=== PATIENT | male | born 1975 | race Hispanic/Latino ===

== ENCOUNTER 2021-06-19 01:50 | Day surgery (SDC) | payer OTHER, SELFPAY ==
[2021-06-15 13:19] VITALS: BMI 26.4
--- NOTE | 2021-06-19 10:47 | WPDANESEPPF ---
Anes - Initial Pre Proc Eval Procedure: Operation Date: 06/19/21 14:00 Proposed Procedures p Colonoscopy - Moses Thurston MD Date/Time: 06/19/21 10:47 Surgeon: Moses Thurston MD Pre Op Diagnosis: melena Patient Data Age: 45 Gender: M Height: 1.83 m Weight: 88.5 kg Allergies Allergy/AdvReac Type Severity Reaction Status Date / Time No Known Allergies Allergy Unverified 06/19/21 12:56 Home Medications Medication Instructions Recorded Confirmed Type No Home Medications 05/06/21 06/15/21 History Patient hx anesthesia problems: none Family hx anesthesia problems: none Results Review: All pre-operative results and documents have been reviewed as part of the pre-operative evaluation. [facility], LAT[facility] Social History Social History (Updated 05/06/21 @ 14:23 by Katarina Gonzalez) Smoking status: Never smoker Second hand tobacco smoke exposure: No Alcohol intake: current Drinks per week: 10 Substance use: never Substance use type: does not use Living arrangements: with family Gender identity (if verbalized by the patient): Male Sexual Orientation (if Verbalized by the Patient): Straight or Heterosexual Spiritual care concerns: No Anes - Eval Final PreProcedure Day of Procedure 06/19/21 10:47 Patient weight: overweight Heart: regular rate and rhythm Lungs: clear to auscultation and normal air movement Airway: Mallampati scale class II Neurological: alert and oriented Last oral intake: >/= 8 hours ASA classification: I Emergent: no Anesthetic plan: proceed Anesthesia type and monitoring: general GIVS Results Review: All pre-operative results and documents have been reviewed as part of the pre-operative evaluation. Informed Consent: The patient's anesthetic plan and its attendant risks and benefits were discussed with the patient/family/POA. Questions were solicited and answers provided to the satisfaction of the patient/family/POA.
[2021-06-19 12:59] VITALS: BP 130/93; PULSE 65; RESP 20; TEMP 36.2; O2SAT 100
[2021-06-19] MEDS: LACTATED RINGERS 1,000 ML 150 ML IV CONT (13:16)
--- NOTE | 2021-06-19 13:39 | WPDGICN ---
Assessment and Plan Assessment and plan (1) Rectal bleeding: Code(s): K62.5 - Hemorrhage of anus and rectum Status: Acute Assessment and Plan: Patient has had 1 episode of bright red blood per rectum. For this reason colonoscopy will be performed to assess more thoroughly. Further recommendations may be given after endoscopy. (2) Encounter for screening colonoscopy: Code(s): Z12.11 - Encounter for screening for malignant neoplasm of colon Status: Acute Assessment and Plan: Patient has never had screening colonoscopy. Given his age of 45 neoplasia screening advised. Neoplasia screening colonoscopy will be performed at this time. GI Consult Note Consult date/time: 06/19/21 13:39 HPI: Max Ross III is a 45 year old male Presents for colonoscopy. Patient has never had screening colonoscopy. He reports 1 episode of bright red blood per rectum. For this reason referred for endoscopy. He denies abdominal pain. He reports his bowel habits are normal. There is no family history of colon or rectal disease. Neoplasia screening advised. Review of Systems Review of Systems: All systems reviewed & are unremarkable except as noted in HPI and below [facility] Social History Social History (Updated 05/06/21 @ 14:23 by Katarina Gonzalez) Smoking status: Never smoker Second hand tobacco smoke exposure: No Alcohol intake: current Drinks per week: 10 Substance use: never Substance use type: does not use Living arrangements: with family Gender identity (if verbalized by the patient): Male Sexual Orientation (if Verbalized by the Patient): Straight or Heterosexual Spiritual care concerns: No Meds Home Medications and Allergies Home Medications Medication Instructions Recorded Confirmed Type No Home Medications 05/06/21 06/15/21 History Allergies Allergy/AdvReac Type Severity Reaction Status Date / Time No Known Allergies Allergy Unverified 06/19/21 12:56 Vital Signs Vital Signs - 24 hr 06/19/21 12:59 Temperature 97.1 F L Pulse Rate 65 Respiratory Rate 20 Blood Pressure 130/93 H Pulse Oximetry 100 Exam Narrative: Physical exam reveals patient to be alert. Vital signs stable. HEENT exam is unremarkable. Patient is anicteric. Lungs are clear to auscultation and percussion. Heart is without murmur or extra sounds. Abdominal exam bowel sounds present soft nontender with no hepatosplenomegaly. Digital external rectal exam is normal.
[2021-06-19 14:04] VITALS: BP 102/70; PULSE 80; RESP 18; O2SAT 96
[2021-06-19 14:14] VITALS: BP 109/67; PULSE 72; RESP 18; O2SAT 96
[2021-06-19 14:24] VITALS: BP 121/81; PULSE 70; RESP 18; O2SAT 98
== END 2021-06-19 14:37 | disposition home or self-care (01) ==
PROVIDERS: PCP Family Medicine; Visit Provider Internal Medicine Gastroenterology
PROC: 0DJD8ZZ Inspection of Lower Intestinal Tract, Via Natural or Artificial Opening Endoscopic (ICD-10-PCS; CPT 45378; principal; 2021-06-19 14:00)
DX: Z12.11 Encounter for screening for malignant neoplasm of colon (principal); K64.8 Other hemorrhoids; K62.5 Hemorrhage of anus and rectum
CPT/HCPCS: 45378; J2001; J2704; J7120

== ENCOUNTER 2022-11-23 09:30 | Emergency (ER) | payer OTHER, SELFPAY ==
[2022-11-23 09:30] VITALS: BP 151/87; PULSE 66; RESP 16; TEMP 36.5; O2SAT 100
--- NOTE | 2022-11-23 09:57 | ECG_ITS ---
Measurements Intervals [place] Rate: 62 P: 30 CA: 146 QRS: 70 QRSD: 98 T: 18 QT: 380 QTc: 388 Interpretive Statements SINUS RHYTHM BASELINE ARTIFACT- I, II, III, AVR, AVL, AVF NORMAL ECG NO PREVIOUS ECG AVAILABLE FOR COMPARISON Electronically Signed On 11-23-2022 10:51:12 CDT by Christiano Rangel D.O.
[2022-11-23 10:12] LABS: Basophils Percent Auto 0.5 % (0.2-1.2); Eosinophils Absolute Auto 0.2 K/mm3 (0-0.3); Eosinophils Percent Auto 3.7 % (0-4.4); Hemoglobin 14.9 g/dL (14.0-18.0); Immature Granulocyte Absolute 0.04 K/mm3 (0.00-0.031); Immature Granulocyte Percent A 0.7 % (0-0.5); Lymphocytes Absolute Auto 2.48 K/mm3 (0.9-3.2); Lymphocytes Percent Auto 44.2 % (18.3-44.2); Mean Corpuscular HGB Conc 32.4 g/dl (32-36); Mean Corpuscular Hemoglobin 27.7 pg (26-34); Mean Corpuscular Volume 85.7 fl (80-100); Monocytes Absolute Auto 0.4 K/mm3 (0.1-0.6); Neutrophils Absolute Auto 2.5 K/mm3 (1.3-6.7); Neutrophils Percent Auto 43.9 % (45.5-73.1); Platelet Count Result 252 k/mm3 (150-375); Red Blood Count 5.37 M/mm3 (4.6-6.20); Red Cell Distribution Width 13.2 % (11.5-14.5); White Blood Count 5.6 K/mm3 (4.5-10.0)
[2022-11-23 10:22] LABS: INR 0.9; Partial Thromboplastin Time 30.3 SECONDS (22.3-36.8); Prothrombin Time 12.6 Seconds (11.1-14.7)
[2022-11-23 10:33] LABS: Alanine Aminotransferase 31 U/L (6-50); Albumin Level 4.7 g/dL (3.5-5.1); Alkaline Phosphatase 65 U/L (38-126); Anion Gap 9 mmol/L (8-16); Aspartate Amino Transferase 25 U/L (17-59); Bilirubin,Total 0.9 mg/dL (0.2-1.3); Blood Urea Nitrogen 17 mg/dL (9-20); Carbon Dioxide 28 mmol/L (22-30); Chloride 103 mmol/L (98-107); Estimated CRCL calculation 108 ml/min; Estimated Glomerular Filt Rate > 60; Glucose 106 mg/dL (65-110); Lipase 69 U/L (23-300); Potassium 4.7 mmol/L (3.4-5.0); Sodium 140 mmol/L (137-145)
[2022-11-23 10:43] LABS: Troponin I < 0.012 ng/mL (0.000-0.034)
--- NOTE | 2022-11-23 11:07 | PC.NURSE ---
Patient up to triage desk to notify this RN that he was going to leave and wanted his results sent to him. Patient notified that his results could not be sent to him but that they could be seen on the patient portal. The patient was notified that those results have not been reviewed by a physician and that since he presented with CP that he should stay for evaluation. Patient declined. Encouraged to return to the ED with worsening sx. Ambulatory at discharge with steady gait. Respirations regular and non-labored.
== END 2022-11-23 11:07 | disposition left against medical advice (07) ==
PROVIDERS: Emergency Provider Preventive Medicine Aerospace Medicine; PCP Family Medicine
DX: R07.9 Chest pain, unspecified (principal)
CPT/HCPCS: 36415; 80053; 83690; 84484; 85025; 85610; 85730; 93005; 99199

== ENCOUNTER 2023-08-22 12:11 | Outpatient (CLI) | payer OTHER, SELFPAY ==
[2023-08-22 12:57] LABS: Uric Acid 5.6 mg/dL (3.5-8.5)
== END 2023-08-22 12:12 | disposition home or self-care (01) ==
LOC: ANHLAB 12:11
PROVIDERS: PCP Family Medicine; Visit Provider Physician Assistant Medical
DX: M79.89 Other specified soft tissue disorders (principal)
CPT/HCPCS: 36415; 84550